=== PATIENT | male | born 1935 | race Caucasian/White ===

== ENCOUNTER → 2016-03-26 | Outpatient (CLI) | payer OTHER, MEDICARE ==
[~2016-03-26] MED LIST: BENICAR40 MG PO; CO Q-10200 MG PO; EYE VISION PO; IRON325 M1 PO; LO-DOSE ASPIRIN81 M2 PO; LYCOPENE10 MG PO; NASACORT10.8 ML BOTH NARES; RED YEAST RICE600 M1 PO; SAW PALMETTO500 MG PO; SIMVASTATIN40 MG PO; TRIPLE OMEGA C400 MG PO; [UNRECOGNIZED DRUG - OTHER] PO
== END | disposition home or self-care (01) ==
LOC: RES 08:00
DX: R06.09 Other forms of dyspnea (principal)
CPT/HCPCS: 94060; 94726; 94729